=== PATIENT | male | born 1980 | race Caucasian/White ===

== ENCOUNTER → 2024-08-01 11:39 | Outpatient (REF) | payer OTHER, SELFPAY | LOC: HWRAD 11:39 | PROVIDERS: ATTENDING PHYSICIAN Nurse Practitioner Family | DX: R07.9 Chest pain, unspecified (principal) | CPT/HCPCS: 71046 ==

== ENCOUNTER → 2024-08-08 14:37 | Outpatient (REF) | payer OTHER, SELFPAY | LOC: HWRCS 14:37 | PROVIDERS: ATTENDING PHYSICIAN Nurse Practitioner Family | DX: R07.9 Chest pain, unspecified (principal) | CPT/HCPCS: 93306 ==

== ENCOUNTER → 2025-03-24 07:13 | Outpatient (REF) | payer OTHER, SELFPAY | LOC: HWRAD 07:13 | PROVIDERS: ATTENDING PHYSICIAN Nurse Practitioner Family | DX: R94.5 Abnormal results of liver function studies (principal) | CPT/HCPCS: 76700 ==